=== PATIENT | male | born 1940 | race Caucasian/White ===

== ENCOUNTER 2021-07-10 11:09 | Emergency (ER) | payer OTHER ==
[2021-07-10 11:19] VITALS: BMI 23.7
[2021-07-10] MEDS ORDERED: ACETAMINOPHEN 1000 MG/100 ML BAG IVPB ONE (12:55)
[2021-07-10] MEDS ORDERED: ACETAMINOPHEN INJECTION 100 ML IVPB ONE (13:07)
[2021-07-10 14:04] LABS: BASO % 0.4 % (0-2.0); EOS % 1.5 % (0-4.5); HEMOGLOBIN 13.5 GM/dL (11.7-16.9); MCH 30.4 pg (25.7-33.7); MCHC 33.6 g/dl (32.0-35.9); MEAN CELL VOLUME 90.3 fl (80-96); MEAN PLT VOLUME 8.8 fl (7.5-11.1); MONO % 5.3 % (3.8-10.2); NEUT % 71.8 % (42.8-82.8); PLATELET COUNT 404 10^3/uL (134-434); RBC 4.43 M/mm3 (4.00-5.60); RDW 13.8 % (11.9-15.9); WHITE BLOOD COUNT 8.2 K/mm3 (4.0-10.0)
[2021-07-10 14:05] LABS: URINE APPEARANCE CLEAR; URINE BILIRUBIN NEGATIVE (NEGATIVE); URINE COLOR YELLOW; URINE GLUCOSE (UA) TRACE (NEGATIVE); URINE KETONE NEGATIVE (NEGATIVE); URINE LEUK ESTERASE NEGATIVE (NEGATIVE); URINE NITRITE NEGATIVE (NEGATIVE); URINE PROTEIN NEGATIVE (NEGATIVE); URINE UROBILINOGEN 0.2 mg/dL (0.2-1.0)
[2021-07-10 14:33] LABS: CALCIUM 9.5 mg/dL (8.5-10.1)
[2021-07-10 14:34] LABS: BLOOD UREA NITROGEN 15.9 mg/dL (7-18)
[2021-07-10 14:36] LABS: ALBUMIN 3.4 g/dl (3.4-5.0)
[2021-07-10 14:37] LABS: CREATININE 1.1 mg/dL (0.55-1.3)
[2021-07-10 14:39] LABS: TOT PROT 8.9 g/dl (6.4-8.2)
[2021-07-10 14:41] LABS: BILIRUBIN,TOTAL 0.5 mg/dL (0.2-1)
[2021-07-10] MEDS ORDERED: SODIUM CHLORIDE 0.9% 500 ML INFUS.BAG IV ONE (15:01)
[2021-07-10 18:05] VITALS: TEMP 98
[2021-07-10] MEDS ORDERED: LISINOPRIL 5 MG TABLET PO ONE (19:04)
[2021-07-10] MEDS ORDERED: LISINOPRIL 5 MG TABLET ONE (19:13)
[2021-07-10 19:27] VITALS: BP 196/110; PULSE 96
[2021-07-10] MEDS ORDERED: metoPROLOL SUCCINATE 25 MG TAB.SR.24H (FP) PO SCH (22:00)
== END 2021-07-10 21:13 | disposition home or self-care (01) ==
LOC: JER 11:09
PROC: 3E0333Z Introduction of Anti-inflammatory into Peripheral Vein, Percutaneous Approach (ICD-10-PCS; principal; 2021-07-10)
DX: I71.4 Abdominal aortic aneurysm, without rupture (principal)
CPT/HCPCS: 36415; 72100-TC-FY; 74174-TC; 74176-TC; 80053; 81003; 85025; 87040; 87086; 99285-25; Q9967

== ENCOUNTER 2022-12-24 18:21 | Inpatient (IN) | payer OTHER ==
[2022-12-24 18:31] VITALS: BMI 23.7
[2022-12-24] MEDS ORDERED: ACETAMINOPHEN 1000 MG/100 ML BAG IVPB ONE (19:48)
[2022-12-24] MEDS ORDERED: ACETAMINOPHEN INJECTION 100 ML IVPB ONE (20:20)
[2022-12-24 20:31] LABS: POTASSIUM 4.1 mmol/L (3.5-5.1)
[2022-12-24 20:34] LABS: ALBUMIN 3.6 g/dl (3.4-5.0); BLOOD UREA NITROGEN 21.1 mg/dL (7-18)
[2022-12-24 20:36] LABS: CREATININE 1.4 mg/dL (0.55-1.3)
[2022-12-24 20:37] LABS: BASO % 0.3 % (0-2.0); HEMOGLOBIN 12.8 GM/dL (11.7-16.9); LYMPH % 18.3 % (8-40); MCHC 33.8 g/dl (32.0-35.9); MEAN CELL VOLUME 88.9 fl (80-96); MEAN PLT VOLUME 9.6 fl (7.5-11.1); NEUT % 75.4 % (42.8-82.8); PLATELET COUNT 175 10^3/uL (134-434); RBC 4.28 M/mm3 (4.00-5.60); RDW 13.7 % (11.9-15.9); WHITE BLOOD COUNT 6.7 K/mm3 (4.0-10.0)
[2022-12-24 20:38] LABS: BILIRUBIN,TOTAL 0.5 mg/dL (0.2-1); TOT PROT 7.6 g/dl (6.4-8.2)
[2022-12-24] MEDS ORDERED: LACTATED RINGERS SOLUTION 1000 ML INFUS.BAG IV ONE (20:55)
[2022-12-24] MEDS ORDERED: MAG HYDROX/AL HYDROX/SIMETH 30 ML UNIT-DOSE CUP PO ONE (20:57)
[2022-12-24] MEDS ORDERED: FAMOTIDINE 20 MG/50 ML IVPB 20 MG/50 ML MG IVPB ONE ×2 (20:57→21:01)
[2022-12-24] MEDS ORDERED: FAMOTIDINE 10 MG/ML VIAL IVPB ONE (21:01)
[2022-12-24] MEDS ORDERED: MAG HYDROX/AL HYDROX/SIMETH 30 ML UNIT-DOSE CUP ONE (21:01)
[2022-12-25] MEDS ORDERED: DEXTROSE 5%-0.45% SALINE 1,000 ML IV SCH (02:15)
[2022-12-25 02:57] LABS: INR 1.1 (0.83-1.09); PROTHROMBIN TIME (PATIENT) 12.8 SEC (9.7-13.0)
[2022-12-25] MEDS ORDERED: TAMSULOSIN HCL 0.4 MG CAP PO SCH (08:30)
[2022-12-25 08:49] LABS: BASO % 0.6 % (0-2.0); EOS % 0.8 % (0-4.5); HEMATOCRIT 37.2 % (35.4-49); HEMOGLOBIN 12.3 GM/dL (11.7-16.9); LYMPH % 26.1 % (8-40); MCH 29.7 pg (25.7-33.7); MCHC 33.2 g/dl (32.0-35.9); MEAN CELL VOLUME 89.5 fl (80-96); MEAN PLT VOLUME 9.7 fl (7.5-11.1); MONO % 11.4 % (3.8-10.2); NEUT % 61.1 % (42.8-82.8); PLATELET COUNT 181 10^3/uL (134-434); RBC 4.15 M/mm3 (4.00-5.60); RDW 13.6 % (11.9-15.9); WHITE BLOOD COUNT 6.8 K/mm3 (4.0-10.0)
[2022-12-25 09:21] LABS: BLOOD UREA NITROGEN 20.5 mg/dL (7-18); CALCIUM 8.3 mg/dL (8.5-10.1)
[2022-12-25 09:24] LABS: CREATININE 1.4 mg/dL (0.55-1.3)
[2022-12-25] MEDS ORDERED: FINASTERIDE 5 MG TABLET (FP) PO SCH (10:00)
[2022-12-25] MEDS ORDERED: metoPROLOL SUCCINATE 25 MG TAB.SR.24H (FP) PO SCH (10:00)
[2022-12-25] MEDS ORDERED: ACETAMINOPHEN 1000 MG/100 ML BAG IVPB PRN ×2 (10:59→15:03)
[2022-12-25] MEDS ORDERED: LISINOPRIL 5 MG TABLET PO SCH ×2 (11:47→22:00)
[2022-12-25] MEDS ORDERED: amLODIPine BESYLATE 5 MG TABLET (FP) PO SCH (12:00)
[2022-12-25] MEDS ORDERED: hydrALAZINE HCL 20 MG/ML VIAL IVPUSH PRN (13:22)
[2022-12-25] MEDS ORDERED: INSULIN (NOVOLOG) ASPART 100 UNITS/ML 10ML VIAL ONE (16:23)
[2022-12-25] MEDS: HEPARIN NA (PORCINE) 5,000 UNITS/ML 1ML VIAL SQ SCH (21:35)
[2022-12-25] MEDS: CHLORHEXIDINE GLUCONATE 4% CLEANSER FOR DECOLONIZATION TP SCH (21:36)
[2022-12-25] MEDS: MUPIROCIN 2% TOPICAL OINTMENT FOR DECOLONIZATION NS SCH (21:36)
[2022-12-25] MEDS: ATORVASTATIN CA 10 MG TABLET (FP) PO SCH (21:36)
[2022-12-25] MEDS: LISINOPRIL 10 MG TABLET PO SCH (21:36)
[2022-12-25] MEDS ORDERED: ATORVASTATIN CA 10 MG TABLET (FP) PO SCH (22:00)
[2022-12-25] MEDS ORDERED: PATIENT'S OWN MEDICATION (NON-FORMULARY) (Simvastatin 10 MG) PO SCH (22:00)
[2022-12-25] MEDS ORDERED: TAMSULOSIN HCL 0.4 MG PO SCH (22:00)
[2022-12-26 07:33] LABS: BASO % 0.8 % (0-2.0); EOS % 1.8 % (0-4.5); HEMATOCRIT 38.4 % (35.4-49); HEMOGLOBIN 12.7 GM/dL (11.7-16.9); LYMPH % 39.2 % (8-40); MCHC 33.2 g/dl (32.0-35.9); MEAN CELL VOLUME 90.5 fl (80-96); MEAN PLT VOLUME 9.8 fl (7.5-11.1); MONO % 10.9 % (3.8-10.2); NEUT % 47.3 % (42.8-82.8); PLATELET COUNT 191 10^3/uL (134-434); RBC 4.25 M/mm3 (4.00-5.60); RDW 13.8 % (11.9-15.9); WHITE BLOOD COUNT 6.2 K/mm3 (4.0-10.0)
[2022-12-26 07:46] LABS: POTASSIUM 4.2 mmol/L (3.5-5.1)
[2022-12-26 07:49] LABS: CALCIUM 8.6 mg/dL (8.5-10.1)
[2022-12-26 07:51] LABS: ALBUMIN 3.2 g/dl (3.4-5.0)
[2022-12-26 07:54] LABS: CREATININE 1.6 mg/dL (0.55-1.3)
[2022-12-26 07:55] LABS: BILIRUBIN,TOTAL 0.8 mg/dL (0.2-1)
[2022-12-26 07:56] LABS: TOT PROT 6.9 g/dl (6.4-8.2)
[2022-12-26] MEDS ORDERED: LACTATED RINGERS SOLUTION 1000 ML INFUS.BAG IV ONE (08:00)
[2022-12-26] MEDS: TAMSULOSIN HCL 0.4 MG CAP PO SCH (09:02)
[2022-12-26] MEDS: amLODIPine BESYLATE 5 MG TABLET (FP) PO SCH (09:02)
[2022-12-26] MEDS: metoPROLOL SUCCINATE 25 MG TAB.SR.24H (FP) PO SCH (09:02)
[2022-12-26] MEDS: LISINOPRIL 10 MG TABLET PO SCH (09:02)
[2022-12-26] MEDS: HEPARIN NA (PORCINE) 5,000 UNITS/ML 1ML VIAL SQ SCH ×2 (09:03→22:58)
[2022-12-26] MEDS: FINASTERIDE 5 MG TABLET (FP) PO SCH (09:03)
[2022-12-26] MEDS ORDERED: FINASTERIDE 5 MG PO SCH (10:00)
[2022-12-26] MEDS ORDERED: METOPROLOL SUCCINATE 25 MG PO SCH (10:00)
[2022-12-26] MEDS ORDERED: LISINOPRIL 5 MG TABLET PO SCH (10:56)
[2022-12-26] MEDS: MUPIROCIN 2% TOPICAL OINTMENT FOR DECOLONIZATION NS SCH ×2 (16:17→22:59)
[2022-12-26] MEDS: CHLORHEXIDINE GLUCONATE 4% CLEANSER FOR DECOLONIZATION TP SCH (22:59)
[2022-12-26] MEDS: ATORVASTATIN CA 10 MG TABLET (FP) PO SCH (22:59)
[2022-12-27] MEDS: TAMSULOSIN HCL 0.4 MG CAP PO SCH (10:07)
[2022-12-27] MEDS: amLODIPine BESYLATE 5 MG TABLET (FP) PO SCH (10:07)
[2022-12-27] MEDS: metoPROLOL SUCCINATE 25 MG TAB.SR.24H (FP) PO SCH (10:07)
[2022-12-27] MEDS: FINASTERIDE 5 MG TABLET (FP) PO SCH (10:07)
[2022-12-27] MEDS ORDERED: SODIUM CHLORIDE 1,000 ML IV SCH (13:15)
[2022-12-27] MEDS: HEPARIN NA (PORCINE) 5,000 UNITS/ML 1ML VIAL SQ SCH ×2 (17:36→22:11)
[2022-12-27] MEDS: MUPIROCIN 2% TOPICAL OINTMENT FOR DECOLONIZATION NS SCH (21:44)
[2022-12-27] MEDS: CHLORHEXIDINE GLUCONATE 4% CLEANSER FOR DECOLONIZATION TP SCH (21:45)
[2022-12-27] MEDS: ATORVASTATIN CA 10 MG TABLET (FP) PO SCH (21:45)
[2022-12-28 06:54] LABS: BASO % 0.6 % (0-2.0); EOS % 6.9 % (0-4.5); HEMATOCRIT 36.3 % (35.4-49); HEMOGLOBIN 12.1 GM/dL (11.7-16.9); LYMPH % 36.8 % (8-40); MCHC 33.2 g/dl (32.0-35.9); MEAN CELL VOLUME 90.3 fl (80-96); MONO % 10.2 % (3.8-10.2); NEUT % 45.5 % (42.8-82.8); PLATELET COUNT 173 10^3/uL (134-434); RBC 4.02 M/mm3 (4.00-5.60); RDW 13.6 % (11.9-15.9); WHITE BLOOD COUNT 5.8 K/mm3 (4.0-10.0)
[2022-12-28 07:01] LABS: POTASSIUM 4.3 mmol/L (3.5-5.1)
[2022-12-28 07:07] LABS: CALCIUM 7.9 mg/dL (8.5-10.1)
[2022-12-28 07:08] LABS: ALBUMIN 2.9 g/dl (3.4-5.0); BLOOD UREA NITROGEN 33.1 mg/dL (7-18)
[2022-12-28 07:09] LABS: CREATININE 1.4 mg/dL (0.55-1.3)
[2022-12-28 07:11] LABS: BILIRUBIN,TOTAL 0.6 mg/dL (0.2-1); TOT PROT 6.3 g/dl (6.4-8.2)
[2022-12-28] MEDS ORDERED: VASOPRESSIN 20 UNITS/ML VIAL IV ONE (08:56)
[2022-12-28] MEDS ORDERED: NITROGLYCERIN 50 MG/10 ML VIAL IVPB ONE (08:56)
[2022-12-28] MEDS ORDERED: ESMOLOL HCL 100,000 MCG/10 ML VIAL ONE (08:56)
[2022-12-28] MEDS ORDERED: NOREPINEPHRINE BITARTRATE 4 MG/4 ML ML IV ONE (08:56)
[2022-12-28] MEDS ORDERED: SUGAMMADEX SODIUM 200 MG/2 ML VIAL ONE (08:56)
[2022-12-28] MEDS ORDERED: EPINEPHrine/PF 1 MG/1 ML (1:1,000) AMPULE ONE ×2 (08:56→13:48)
[2022-12-28] MEDS ORDERED: LIDOCAINE HCL/PF 2% SDV 5ML VIAL ONE (08:56)
[2022-12-28] MEDS: metoPROLOL SUCCINATE 25 MG TAB.SR.24H (FP) PO SCH (09:01)
[2022-12-28] MEDS: TAMSULOSIN HCL 0.4 MG CAP PO SCH (09:01)
[2022-12-28] MEDS: MUPIROCIN 2% TOPICAL OINTMENT FOR DECOLONIZATION NS SCH ×2 (09:01→22:18)
[2022-12-28] MEDS: amLODIPine BESYLATE 5 MG TABLET (FP) PO SCH (09:01)
[2022-12-28] MEDS: FINASTERIDE 5 MG TABLET (FP) PO SCH (09:01)
[2022-12-28] MEDS ORDERED: ONDANSETRON 4 MG/2 ML VIAL ONE (12:43)
[2022-12-28] MEDS ORDERED: DEXAMETHASONE SOD PHOSPHATE 4 MG/1 ML VIAL ONE (12:43)
[2022-12-28] MEDS ORDERED: SODIUM CHLORIDE 0.9% P/F 10 ML VIAL IJ ONE (12:43)
[2022-12-28] MEDS ORDERED: ceFAZolin SODIUM 1 GM VIAL ONE (12:43)
[2022-12-28] MEDS ORDERED: ROCURONIUM BROMIDE 50 MG/5 ML SYRINGE ONE ×2 (13:04→18:03)
[2022-12-28] MEDS ORDERED: SUCCINYLCHOLINE CHLORIDE 200 MG/10 ML SYRINGE ONE (13:04)
[2022-12-28] MEDS ORDERED: PROPOFOL 20 ML ONE (13:40)
[2022-12-28] MEDS ORDERED: MIDAZOLAM HCL 2 MG/2 ML SINGLE DOSE VIAL ONE (13:40)
[2022-12-28] MEDS ORDERED: FENTANYL CITRATE/PF 50 MCG/ML VIAL ONE (13:41)
[2022-12-28] MEDS ORDERED: CALCIUM CHLORIDE 1 GM/10 ML *DISP.SYRIN ONE (13:50)
[2022-12-28] MEDS ORDERED: HEPARIN NA (PORCINE) 5,000 UNITS/ML 1ML VIAL ONE (15:05)
[2022-12-28] MEDS ORDERED: LIDOCAINE HCL 2% 100 MG/5 ML DISP.SYRIN ONE (15:09)
[2022-12-28] MEDS ORDERED: CEFAZOLIN 2 GM in DEXTROSE 5%-WATER - 100 ML IVPB ONE (15:30)
[2022-12-28] MEDS ORDERED: HYDROmorphone HCl 2 MG/ML VIAL ONE (17:27)
[2022-12-28] MEDS ORDERED: ceFAZolin SODIUM 1 GM VIAL IVPB ONE (17:27)
[2022-12-28] MEDS ORDERED: POVIDONE-IODINE OINTMENT 10% - 28.4 GM TUBE ONE (19:33)
[2022-12-28] MEDS ORDERED: POVIDONE-IODINE OINTMENT 10% - 28.4 GM TUBE TP ONE (19:35)
[2022-12-28] MEDS: ACETAMINOPHEN 1000 MG/100 ML BAG IVPB SCH (20:52)
[2022-12-28] MEDS: CHLORHEXIDINE GLUCONATE 4% CLEANSER FOR DECOLONIZATION TP SCH (22:18)
[2022-12-28] MEDS: ATORVASTATIN CA 10 MG TABLET (FP) PO SCH (22:18)
[2022-12-29] MEDS: ACETAMINOPHEN 1000 MG/100 ML BAG IVPB SCH (03:10)
[2022-12-29] MEDS: TAMSULOSIN HCL 0.4 MG CAP PO SCH (09:12)
[2022-12-29] MEDS: FINASTERIDE 5 MG TABLET (FP) PO SCH (09:12)
[2022-12-29] MEDS: amLODIPine BESYLATE 5 MG TABLET (FP) PO SCH (09:12)
[2022-12-29] MEDS: MUPIROCIN 2% TOPICAL OINTMENT FOR DECOLONIZATION NS SCH ×2 (09:12→21:14)
[2022-12-29] MEDS: metoPROLOL SUCCINATE 25 MG TAB.SR.24H (FP) PO SCH (09:12)
[2022-12-29 10:38] VITALS: RESP 18
[2022-12-29 10:53] LABS: HEMATOCRIT 37.2 % (35.4-49); HEMOGLOBIN 11.9 GM/dL (11.7-16.9); MCHC 32.1 g/dl (32.0-35.9); MEAN CELL VOLUME 90.4 fl (80-96); MEAN PLT VOLUME 9.8 fl (7.5-11.1); PLATELET COUNT 170 10^3/uL (134-434); RBC 4.12 M/mm3 (4.00-5.60); RDW 13.3 % (11.9-15.9); WHITE BLOOD COUNT 11.2 K/mm3 (4.0-10.0)
[2022-12-29 10:59] LABS: INR 1.12 (0.83-1.09)
[2022-12-29 11:02] LABS: ACTIVATED PTT 28.5 SECONDS (25.2-36.5)
[2022-12-29 11:21] LABS: POTASSIUM 4.6 mmol/L (3.5-5.1)
[2022-12-29 11:40] LABS: CALCIUM 8.8 mg/dL (8.5-10.1)
[2022-12-29 11:41] LABS: BLOOD UREA NITROGEN 33.8 mg/dL (7-18)
[2022-12-29 11:44] LABS: CREATININE 1.5 mg/dL (0.55-1.3)
[2022-12-29] MEDS ORDERED: APIXABAN 5 MG TABLET PO SCH (11:45)
[2022-12-29 11:46] LABS: BILIRUBIN,TOTAL 0.5 mg/dL (0.2-1); TOT PROT 6.8 g/dl (6.4-8.2)
[2022-12-29] MEDS: HEPARIN NA (PORCINE) 5,000 UNITS/ML 1ML VIAL SQ SCH (11:57)
[2022-12-29] MEDS: APIXABAN 2.5 MG TABLET PO SCH ×2 (12:06→21:16)
[2022-12-29] MEDS: ATORVASTATIN CA 10 MG TABLET (FP) PO SCH (21:16)
[2022-12-29] MEDS: CHLORHEXIDINE GLUCONATE 4% CLEANSER FOR DECOLONIZATION TP SCH (21:16)
[2022-12-30 07:24] LABS: HEMATOCRIT 35.1 % (35.4-49); HEMOGLOBIN 11.3 GM/dL (11.7-16.9); MCH 29.2 pg (25.7-33.7); MCHC 32.1 g/dl (32.0-35.9); MEAN CELL VOLUME 90.8 fl (80-96); MEAN PLT VOLUME 9.5 fl (7.5-11.1); PLATELET COUNT 171 10^3/uL (134-434); RBC 3.86 M/mm3 (4.00-5.60); RDW 13.6 % (11.9-15.9); WHITE BLOOD COUNT 13.2 K/mm3 (4.0-10.0)
[2022-12-30 07:42] LABS: POTASSIUM 4.5 mmol/L (3.5-5.1)
[2022-12-30 07:50] LABS: BLOOD UREA NITROGEN 35.6 mg/dL (7-18); CALCIUM 8.3 mg/dL (8.5-10.1)
[2022-12-30 07:53] LABS: CREATININE 1.4 mg/dL (0.55-1.3)
[2022-12-30 07:54] LABS: BILIRUBIN,TOTAL 0.6 mg/dL (0.2-1); TOT PROT 6.5 g/dl (6.4-8.2)
[2022-12-30] MEDS: TAMSULOSIN HCL 0.4 MG CAP PO SCH (09:17)
[2022-12-30] MEDS: APIXABAN 2.5 MG TABLET PO SCH (09:17)
[2022-12-30] MEDS: FINASTERIDE 5 MG TABLET (FP) PO SCH (09:17)
[2022-12-30] MEDS: MUPIROCIN 2% TOPICAL OINTMENT FOR DECOLONIZATION NS SCH (09:17)
[2022-12-30] MEDS: amLODIPine BESYLATE 5 MG TABLET (FP) PO SCH (09:17)
[2022-12-30] MEDS: metoPROLOL SUCCINATE 25 MG TAB.SR.24H (FP) PO SCH (09:17)
[2022-12-30 09:21] VITALS: BP 144/67; PULSE 85; TEMP 98.4
== END 2022-12-30 11:20 | disposition home or self-care (01) | DRG 269 ==
LOC: JER 18:21 → JERBED 12-25 00:24 → J5S 12-25 03:52 → JICU 12-25 13:23
PROVIDERS: ADMIT Internal Medicine; ATTEND Internal Medicine
PROC: B400YZZ Plain Radiography of Abdominal Aorta using Other Contrast (ICD-10-PCS; 2022-12-28)
PROC: 04V03DZ Restriction of Abdominal Aorta with Intraluminal Device, Percutaneous Approach (ICD-10-PCS; principal; 2022-12-28 16:30)
DX: I71.40 Abdominal aortic aneurysm, without rupture, unspecified (principal); I48.92 Unspecified atrial flutter; N17.9 Acute kidney failure, unspecified; I10 Essential (primary) hypertension; E78.5 Hyperlipidemia, unspecified; E11.9 Type 2 diabetes mellitus without complications
CPT/HCPCS: 36415; 74174-TC; 76000-TC-FY; 80048; 80053; 80061; 82962; 83036; 83605; 83690; 84443; 84484; 85025; 85027; 85610; 85730; 86850; 86900; 86901; 86922; 87635; 93005; 93010; 93306-TC; 97116-GP; 97162-GP; 99285-25; C1894; J1644; Q9967